=== PATIENT | female | born 1965 | race Caucasian/White ===

== ENCOUNTER 2017-03-14 07:31 | Emergency (ER) | payer OTHER ==
[~2017-03-14 07:31] MED LIST: ALBUTEROL SULF8.5 GM IH; BENTYL20 M1 PO; CLONAZEPAM2 M1 PO; CYMBALTA30 M1 PO; DETROL LA2 MG PO; HORIZANT600 M1 PO; LAMICTAL PO; LAMICTAL100 M1 PO; LAMICTAL100 MG PO; MELATONIN3 M2 PO; NORCO 5-325 TA1 EACH PO; PLEXUS PO; REQUIP0.5 MG PO; REQUIP1 M1 PO; REQUIP2 M1 PO; SPIRIVA18 MCG IH; SYMBICORT; TRAZODONE HCL50 M1 PO; VIIBRYD20 MG PO; VITAMIN C1000 M3 PO; VITAMIN D32000 UNI1 PO; VITAMIN D32000 UNI3 PO
[2017-03-14] MEDS ORDERED: IBUPROFEN800 M1 PO (08:59)
== END 2017-03-14 09:02 ==
LOC: EDMED 07:31
DX: R51 Headache (principal); R11.0 Nausea; F31.9 Bipolar disorder, unspecified; F41.9 Anxiety disorder, unspecified; Z79.899 Other long term (current) drug therapy
CPT/HCPCS: J0780; J1200; J1885